=== PATIENT | female | born 1955 | race Caucasian/White ===

== ENCOUNTER → 2020-04-17 | Outpatient (CLI) | payer MEDICARE | LOC: M.RAD 10:07 | DX: M47.816 Spondylosis without myelopathy or radiculopathy, lumbar region (principal); M16.12 Unilateral primary osteoarthritis, left hip; M54.42 Lumbago with sciatica, left side; M25.78 Osteophyte, vertebrae; R63.4 Abnormal weight loss ==

== ENCOUNTER → 2020-05-01 | Outpatient (CLI) | payer MEDICARE ==
[~2020-05-01] MED LIST: ASA81BEC PO; METOPROLOL SUC100 MG PO; ROSUVASTATIN CA40 MG PO; TOPAMAX 25 MG T25 MG PO; TRAMADOL HCL50 MG PO; lisinopril PO
--- NOTE | ~2020-05-01 | PAINCON ---
[address] [address] PAIN MANAGEMENT CONSULTATION Name: JODYKING Emili [id number] Admission: 05/01/20 Attend Phys: Irina Samaniego MD Discharge: Date of : 59 Report #: [id number] THIS REPORT FOR: //name// cc: Marisol Parnell Ahmad W. DO THIS REPORT FOR: //name// CC: Marisol Ta DATE OF SERVICE: 05/01/2020 CHIEF COMPLAINT: Left hip pain. HISTORY: The patient is a 64-year-old female. She has been referred to the Pain Clinic for evaluation of hip pain. Pain involves the left side. She notes there is significant considerable amount of pain with sitting, walking and standing. She notes that if she lies on her side, it is not as problematic. She described as intermittent, brief shooting, aching, throbbing, sharp and stabbing. Today it is a 9/9. She notes that the pain significantly increases with activity. She has been told that she has quite a bit of arthritis in the hip area. She has used tramadol to help with the pain. While in [place], she had injections in the hip. She has moved to [place] to be closer with her family. Pain in the left hip radiates down the lateral portion of her leg to the knee. Use of tramadol and other oral medication helps the pain about 50%. She has some advanced multilevel degenerative disk disease. She is status post multiple back surgeries. She has had bilateral knee replacements. Since she has reestablished in [place], she would like to have the option in the future if needed of epidural steroid injections. ALLERGIES: SULFA. CURRENT MEDICATIONS: Lisinopril 40 mg, metoprolol 100 mg ER, rosuvastatin 40 mg, Topamax 25 mg b.i.d., and aspirin 81 mg. 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 PAST SURGICAL HISTORY: Tonsillectomy at age 19, right knee total replacement 2008, back surgery for slipped disks, 1989, total knee replacement, left, early 2005, right total knee replacement second in 2013, partial disk removal L3-L4, 2016. Gastric bypass, 2018. SOCIAL HISTORY: She has not worked in the last 6 years, [place] [address] PAIN MANAGEMENT CONSULTATION Name: KING VERA Emili Room: [facility]#: [id number] Admission: 05/01/20 Attend Phys: Irina Samaniego MD Discharge: Date of : 59 Report #: [id number] REVIEW OF SYSTEMS: Generally good health, weight change, wears glasses, swelling of hands, ankles and feet, painful bowel movements/constipation, rash/itching of skin, joint stiffness and swelling, muscle cramps, muscle pain, back pain, difficulty walking, hot/cold intolerance, diabetes. LABORATORY DATA: X-ray of the hip, AP and lateral pelvis, 04/17/2020. FINDINGS: No acute fracture deformities or dislocations were noted. Severe joint space loss with complete effacement of the joint space and sclerosis to the femoral head and acetabulum. PAIN CLINIC ASSESSMENT/PQRS: 1. Rheumatoid arthritis. The patient has osteoarthritic changes in her left hip. She is not being treated for rheumatoid arthritis. 2. Height is 5 feet 6 inches, weight 194 pounds, BMI is 31.4. 3. Vital Signs: Blood pressure 140/93, heart rate 71, respiratory rate 16, room air saturation 97%, and temperature 98.3. 4. Pain intensity, 10/10. 5. Fall history: The patient has not fallen in the last 3 months. 6. Blood thinner. The patient is not on a blood thinning medication. 7. Hypertension. The patient is being treated for hypertension. 8. Opioids greater than 6 weeks. The patient is receiving tramadol. 9. Risk assessment tool, low for opioid use. Risk assessment tool reviewed. 10. Functional assessment tool. 11. Recreational drug use. The patient denies. 12. Tobacco: The patient denies. 13. Alcohol. The patient denies significant use of alcoholic beverages. PHYSICAL EXAMINATION: GENERAL: The patient is a well-developed, well-nourished white female. She is accompanied by her significant other. NECK: Without adenopathy or JVD. HEART: Regular rate. LUNGS: Generally clear. ABDOMEN: Nontender. MUSCULOSKELETAL: Upper extremity muscle strength judged to be 5-/5 for the major muscle groups in the upper extremity. The patient without significant scoliosis, kyphosis or lordosis. The patient complains of pain and discomfort in the left hip. Walks and moves with a very antalgic gait. Rotation of the left hip causes severe pain radiating into the groin area. IMPRESSION: 1. Severe left hip joint pain and degenerative changes. 2. Diabetes. 3. [place] [address] PAIN MANAGEMENT CONSULTATION Name: KING VERA Room: [facility]#: [id number] Admission: 05/01/20 Attend Phys: Irina Samaniego MD Discharge: Date of : 59 Report #: [id number] 4. Arthritis. 5. Degenerative joint disease. 6. Skin cancer. 7. Hypercholesterolemia. 8. Chronic low back pain with degenerative joint disease of the lumbar spine. 9. Chronic migraine. RECOMMENDATIONS: We discussed treatment options with the patient. She does have a significant problem with the pathology in her left hip. We reviewed the images from the Radiology Department of her left hip. We showed her the areas of pathology. She appears to understand level of destruction. We discussed options. The patient is considering hip replacement in the future. We will continue with medications. She finds that the tramadol medication is helpful. We will renew that medication. We explained that sometimes injections in the hip area, hip joint can provide benefit at times for pain relief. Given the problems and destruction of her hip, it will be difficult to know how long the benefit would remain. We explained to the patient that epidural injections should she need them in the future would be an option. At this juncture, we will continue with her generally conservative approach. We would like to thank you for letting us participate in her care. We hope she continues to improve. By: [id number]. Ran Samaniego MD /nt
== END ==
LOC: M.PC 03:57
PROVIDERS: ATTEND Anesthesiology Pain Medicine
DX: M25.552 Pain in left hip (principal); E11.9 Type 2 diabetes mellitus without complications; I10 Essential (primary) hypertension; M19.90 Unspecified osteoarthritis, unspecified site; C44.91 Basal cell carcinoma of skin, unspecified; E78.00 Pure hypercholesterolemia, unspecified; M47.816 Spondylosis without myelopathy or radiculopathy, lumbar region; G43.009 Migraine without aura, not intractable, without status migrainosus; Z79.899 Other long term (current) drug therapy